=== PATIENT | male | born 1965 | race Caucasian/White ===

== ENCOUNTER 2017-08-22 12:55 | Emergency (ER) | payer OTHER ==
[~2017-08-22] VITALS: Ht 180.3 cm; Wt 89.0 kg
[2017-08-22] MEDS ORDERED: pantoprazole 40mg Tablet.DR PO STA (14:20)
[2017-08-22] MEDS ORDERED: ondansetron 4mg rapidly disintigrating tab PO STA (14:20)
[2017-08-22 14:38] LABS: BASOPHILS % (AUTO) 0.3 % (0-1); EOSINOPHILS # (AUTO) 0.1 X10'3 (0-0.9); EOSINOPHILS % (AUTO) 0.7 % (0-6); HEMATOCRIT 44.1 % (42.0-52.0); HEMOGLOBIN 15.5 g/dl (14.0-17.9); LYMPHOCYTES # (AUTO) 2.7 X10'3 (1.1-4.8); LYMPHOCYTES % (AUTO) 28.2 % (21-51); MEAN CORPUSCULAR HEMOGLOBIN 28.8 PG (27.0-31.0); MEAN CORPUSCULAR HGB CONC 35.2 % (33.0-36.5); MEAN CORPUSCULAR VOLUME 81.8 FL (78-98); MEAN PLATELET VOLUME 7.1 FL (7.4-10.4); MONOCYTES # (AUTO) 0.7 X10'3 (0-0.9); MONOCYTES % (AUTO) 7.5 % (2-12); NEUTROPHILS % (AUTO) 63.3 % (42-75); PLATELET COUNT 282 X10'3 (140-440); RED BLOOD COUNT 5.39 X10'6 (4.70-6.10); RED CELL DISTRIBUTION WIDTH 13.2 % (11.5-14.5); WHITE BLOOD COUNT 9.5 X10'3 (4.5-11.0)
[2017-08-22 14:47] LABS: PROTHROMBIN TIME 10.7 SECONDS (9.0-12.0)
[2017-08-22] MEDS ORDERED: PANT-47 PO (14:54)
[2017-08-22 14:59] VITALS: BP 131/86
== END 2017-08-22 15:02 | disposition home or self-care (01) ==
LOC: ER 12:56
DX: K92.0 Hematemesis (principal); M54.2 Cervicalgia; F12.90 Cannabis use, unspecified, uncomplicated; Z88.0 Allergy status to penicillin; Z79.899 Other long term (current) drug therapy
CPT/HCPCS: 36415; 84520; 85025; 85610; 99284